=== PATIENT | male | born 1970 | race Caucasian/White ===

== ENCOUNTER 2025-11-03 11:01 | Day surgery (SDC) | payer BC, SELFPAY ==
--- NOTE | 2025-11-03 06:26 | EXP.HP ---
History of Present Illness *Admission Date: 11/03/25 *History of present illness: Mr. Jones is a 55-year-old gentleman who is here for initial screening colonoscopy. The patient reports no abdominal pain, weight loss, change in his bowel habits or rectal bleeding. He reports no family history of colon cancer. His father had Crohn's disease. The patient did have some obstipation/constipation with resulting hepatic flexure syndrome with right upper quadrant abdominal pain. This improved with increased water/fluid intake and he has had resolution. He did have a normal gallbladder ultrasound other than some mild gallbladder wall thickening. His MRCP showed no abnormalities. The examination is deemed medically necessary for screening colonoscopy. The patient has been seen, interviewed and examined prior to the procedure by both myself and the anesthesia provider. [facility] Disclaimer: The information contained in this section may have been updated after the patient was seen, as this information can be updated by other users. Medical History (Updated 11/03/25 @ 11:43 by Bonny Soares RN) History of kidney stones Family History Father Crohn's disease Social History (Updated 11/03/25 @ 12:11 by Asher Givens CRNA) Smoking Status: Never smoker alcohol intake: current alcohol intake frequency: holidays/special occasions only substance use type: denies use current occupational status: retired Travel in the last 8 weeks?: Inside the [place] Have you lived/traveled outside US in past 30 days?: No Contact w/someone who lives/traveled outside US past 30 days?: No Exposure to someone with infectious disease in past 14 days?: No Do you have a fever (greater than 100.4 F or 38 C)?: No Have you tested positive for COVID-19?: No Exposed to someone with COVID-19 in past 14 days?: No Do you have a sore throat?: No Do you have a cough?: No Do you have any weakness?: No Are you experiencing any nausea/vomitting?: No Do you have any diarrhea?: No Are you experiencing any unusual bleeding?: No Do you have any muscle aches/pain?: No Do you have any abdominal pain?: No Are you experiencing loss of taste or smell?: No Review of Systems Review of Systems Review of systems (narrative): Negative *Cardiovascular Comments: Negative *Gastrointestinal Comments: Negative *Genitourinary Comments: Negative *Musculoskeletal Comments: Negative *Neurologic Comments: Negative Meds Home Medications and Allergies Home Medications ?Medication ?Instructions ?Recorded ?Confirmed ?Type No Known Home Medications 10/05/25 11/03/25 History sodium,potassium,mag sulfates 17.5 See Rx Instructions PO .COMPLEX 10/05/25 11/03/25 Rx gram-3.13 gram-1.6 gram oral soln #354 mL (Suprep Bowel Prep Kit) New Prescriptions to Start Prescriptions: Allergies Allergy/AdvReac Type Severity Reaction Status Date / Time red dye AdvReac Other Verified 11/03/25 11:36 Exam *Routine HEENT Exam Head: Present normocephalic Eye: Present EOMI and PERRL ENT: Present mucous membranes moist *Routine Neck Exam Neck: Present supple *Routine Respiratory Exam Respiratory: Present CTA bilaterally *Routine Cardiovascular Exam Cardiovascular: Present RRR *Routine Abdominal Exam Abdominal: Present soft and normoactive bowel sounds; Absent tenderness *Routine Rectal Exam Rectal:: deferred *Routine Genitalia Exam Genitalia:: deferred *Routine Extremities Exam Extremities: Absent cyanosis, clubbing or edema *Routine Skin Exam Skin: Present warm; Absent rash *Routine Neurological Exam Neurological: Present alert and oriented X3 Assessment and Plan *Assessment and plan (1) Screening for malignant neoplasm of colon: Status: Acute Category: Medical Code(s): Z12.11 - Encounter for screening for malignant neoplasm of colon (2) Family history of Crohn's disease: Status: Acute Category: Medical Code(s): Z83.79 - Family history of other diseases of the digestive system Plan A/P: 1. Screening for colon cancer is the preprocedural diagnosis. The patient will be anesthetized/sedated using MAC sedation. The patient has been seen and examined. Cardiac and lung assessment prior to the examination is stable. Proceed with planned screening colonoscopy.
--- NOTE | 2025-11-03 06:29 | HMH.PROCNOTE ---
[facility] Procedure Note Date: 11/03/25 Time: 12:34 Procedure Note:: Colonoscopy Procedure Report: Colonoscopy with cold snare polypectomy Endoscopist: Mando Dean II, MD Referring physician: Nik Mireles MD, [address] [place] [address] Date of Procedure: November 03, 2025 Equipment: Olympus [id number] adult colonoscope Sedation: MAC sedation Indication: Mr. Jones is a 55-year-old gentleman who is here for initial screening colonoscopy. The patient reports no abdominal pain, weight loss, change in his bowel habits or rectal bleeding. He reports no family history of colon cancer. His father had Crohn's disease. The patient did have some obstipation/constipation with resulting hepatic flexure syndrome with right upper quadrant abdominal pain. This improved with increased water/fluid intake and he has had resolution. He did have a normal gallbladder ultrasound other than some mild gallbladder wall thickening. His MRCP showed no abnormalities. The examination is deemed medically necessary for screening colonoscopy. Procedure: Prior to the procedure, a history and physical exam was performed, and patient's medications and allergies were reviewed. The risks, benefits and alternatives of the sedation and procedure were discussed with the patient. All questions were answered and informed consent was obtained. The patient was brought to the procedure room. Patient identification and proposed procedure were verified by the physician and the nurse. The patient was placed in a left lateral decubitus position and the scope was passed under direct vision. Throughout the procedure, the patient's blood pressure, pulse, and oxygen saturations were monitored continuously. The colonoscopy was accomplished without difficulty. The patient tolerated the procedure well. Findings: On digital rectal examination there was normal rectal tone. There were no external hemorrhoids. The prostate was 2+, smooth, soft, symmetric without nodules. The colonoscope was introduced through the anal canal to the rectum and advanced to the cecum. The ileocecal valve and appendiceal orifice were identified. The scope was advanced a short distance into the ileum which appeared grossly normal. The scope was then withdrawn into the colon. There was a single 5 mm sessile polyp in the ascending colon removed via cold snare polypectomy. The remaining cecum, ascending, transverse, descending, sigmoid and rectum were grossly normal. There were no other mucosal abnormalities identified. Upon retroflexion within the rectum there were grade 1-2 internal hemorrhoids. The preparation was excellent throughout with Rickman Preparation Score of 9. The cecal time was 12 minutes. Impression: 1. Diminutive ascending colon polyp (5 mm) 2. Grade 1-2 internal hemorrhoids Plan: I will follow-up the polyp histology and recommend repeat screening/surveillance colonoscopy again in 7 years if the polyp is adenomatous. I would encourage psyllium fiber supplementation on a maintenance basis.
[2025-11-03 11:39] VITALS: BP 141/91; PULSE 69; RESP 18; TEMP 36.5; O2SAT 100
[2025-11-03 11:53] VITALS: BMI 23.6
--- NOTE | 2025-11-03 12:10 | P.PNANES_ITS ---
[facility] Disclaimer: The information contained in this section may have been updated after the patient was seen, as this information can be updated by other users. Medical History (Updated 11/03/25 @ 11:43 by Bonny Soares RN) History of kidney stones Family History Father Crohn's disease Social History (Updated 11/03/25 @ 11:44 by Bonny Soares RN) Smoking Status: Never smoker alcohol intake: current alcohol intake frequency: holidays/special occasions only substance use type: denies use current occupational status: retired Travel in the last 8 weeks?: Inside the [place] [facility] Anesthesia Checklist Patient Identification Patient Identification: Arm Band Structural Data Admitted From: Home Planned Operative Procedure/s: Colonoscopy Consent for Planned Operative Procedure(s) Verified: Yes Verified Documents: Surgical Consent and History and Physical NPO Status Verified Time NPO: 08:30 (finished prep) Additional verifications Anesthesia Reactions: No Airway Assessment Mallampati Score:: Class II C-Spine Mobility Assessed: Yes TMJ Mobility Assessed: Yes Dentition: Good Dentition Neurological Assessment Level of Consciousness: Awake, Alert and Appropriate Anesthesia Plan Anesthesia Risk discussed: Yes Anesthesia Plan: Verified ASA Class: I Anesthesia Type: MAC
[2025-11-03 12:36] VITALS: BP 109/64; PULSE 72; RESP 18; TEMP 36.3; O2SAT 98
[2025-11-03 12:46] VITALS: BP 105/66; PULSE 63; O2SAT 100
[2025-11-03 12:56] VITALS: BP 133/75; PULSE 84; O2SAT 100
[2025-11-03 13:06] VITALS: BP 112/83; PULSE 67; O2SAT 100
== END 2025-11-03 13:06 | disposition home or self-care (01) ==
PROVIDERS: PCP Internal Medicine Adolescent Medicine; Visit Provider Internal Medicine Gastroenterology
PROC: 0DJD8ZZ Inspection of Lower Intestinal Tract, Via Natural or Artificial Opening Endoscopic (ICD-10-PCS; CPT 45378; principal; 2025-11-03 12:30)
DX: Z12.11 Encounter for screening for malignant neoplasm of colon (principal); D12.2 Benign neoplasm of ascending colon; K64.1 Second degree hemorrhoids; Z83.79 Family history of other diseases of the digestive system
CPT/HCPCS: 45385; J2003; J2704